=== PATIENT | female | born 1980 | race Two or more races ===

== ENCOUNTER 2018-02-02 15:07 | Outpatient (CLI) | payer OTHER | END 2018-02-02 15:13 | disposition home or self-care (01) | LOC: MAMO-SONO 15:07 | DX: E28.2 Polycystic ovarian syndrome (principal) ==

== ENCOUNTER → 2022-10-20 | Outpatient (CLI) | payer OTHER | END | disposition home or self-care (01) | LOC: MAMO-SONO 11:07 | PROVIDERS: ATTEND Obstetrics & Gynecology | DX: N60.11 Diffuse cystic mastopathy of right breast (principal) ==

== ENCOUNTER 2025-10-10 10:42 | Outpatient (CLI) | payer OTHER | END 2025-10-10 10:57 | disposition home or self-care (01) | LOC: MAMO-SONO 10:42 | PROVIDERS: ATTEND Obstetrics & Gynecology | DX: N64.4 Mastodynia (principal); N63.0 Unspecified lump in unspecified breast; Z12.31 Encounter for screening mammogram for malignant neoplasm of breast; N84.0 Polyp of corpus uteri; R10.20 Pelvic and perineal pain unspecified side ==